=== PATIENT | male | born 2000 | race Two or more races ===

== ENCOUNTER 2022-07-09 11:18 | Inpatient (IN) | payer MEDICAID, OTHER ==
[2022-07-09] VITALS (8 sets, daily range): BP systolic 110–123; BP diastolic 67–80
[~2022-07-09] VITALS: Ht 175.3 cm; Wt 82.7 kg
[2022-07-09] MEDS ORDERED: SODIUM CHLORIDE 0.9% 500 ML IVB ONE (12:15)
[2022-07-09] MEDS ORDERED: SODIUM CHLORIDE 0.9% 1,000 ML IV ONE (12:15)
[2022-07-09 12:16] LABS: Basophils # (auto) 0.1 10 ^3/uL (0-0.2); Basophils % (auto) 0.8 % (0.0-2.0); Eosinophils # (auto) 0 10 ^3/uL (0-0.8); Mean Corpuscular Volume 55.5 fL (80.0-100.0); Monocytes # (auto) 0.6 10 ^3/uL (0-1.3); Neutrophils # (auto) 4.5 10 ^3/uL (1.6-8.6); Nucleated Red Blood Cells % 0.5 %; White Blood Cell 6.6 10^3/uL (4.4-10.8)
[2022-07-09 12:18] LABS: Eosinophils % (auto) 0.3 % (0.0-7.0); Hematocrit 18.3 % (41.0-53.0); Lymphocytes # (auto) 1.4 10 ^3/uL (0.4-5.4); Lymphocytes % (auto) 21.5 % (10.0-50.0); Mean Corpuscular Hemoglobin 13.5 pg (28.0-32.0); Mean Corpuscular Hgb Conc. 24.3 g/dL (32.0-36.0); Monocytes % (auto) 8.7 % (0.0-12.0); Neutrophils % (auto) 68.7 % (37.0-80.0); Red Blood Cells 3.29 10^6/uL (4.5-5.90)
[2022-07-09 12:21] LABS: Red Cell Distribution Width 22.2 % (11.8-14.3)
[2022-07-09 12:23] LABS: Hemoglobin 4.4 g/dL (13.5-17.5)
[2022-07-09 12:50] LABS: INR 1.11 (0.9-1.15)
[2022-07-09 12:52] LABS: Potassium 3.6 mmol/L (3.5-5.1)
[2022-07-09 12:53] LABS: Albumin 2.8 g/dL (3.4-5.0); BUN/Creatinine Ratio 21.1; Bilirubin, Total 0.5 mg/dL (0.2-1.0); Calcium 7.6 mg/dL (8.5-10.1); Total Protein 5.9 g/dL (6.4-8.2)
[2022-07-09] MEDS ORDERED: IOHEXOL 300 MG/ML 100ML BOTTLE IJ ONE (12:55)
[2022-07-09 13:54] LABS: % Iron Saturation 4.3 % (20-55)
[2022-07-09 17:05] LABS: Folate (Folic Acid) 17.15 ng/mL (5.38-24)
[2022-07-09] MEDS ORDERED: NITROGLYCERIN 0.4 MG SL TAB SL PRN (20:45)
[2022-07-09] MEDS ORDERED: MORPHINE SULFATE INJ 2 MG/ml SYRG IV PRN (20:45)
[2022-07-09 20:54] LABS: Hemoglobin 7.4 g/dL (13.5-17.5)
[2022-07-09] MEDS ORDERED: FERROUS SULFATE 325mg EC TAB PO ONE (21:00)
[2022-07-09 21:44] LABS: Cholesterol 82 mg/dL (< 200)
[2022-07-09 21:47] LABS: HDL Cholesterol 25 mg/dL (40-59); LDL Cholesterol 50 mg/dL (< 100); Triglycerides 107 mg/dL (< 150)
[2022-07-10 05:00] VITALS: BP 127/84
[2022-07-10 05:42] VITALS: BP 127/84
[2022-07-10 07:15] LABS: Eosinophils # (auto) 0 10 ^3/uL (0-0.8); Hemoglobin 7.3 g/dL (13.5-17.5); Mean Corpuscular Hemoglobin 19.8 pg (28.0-32.0); Monocytes # (auto) 0.7 10 ^3/uL (0-1.3); White Blood Cell 4.8 10^3/uL (4.4-10.8)
[2022-07-10 07:17] LABS: Basophils # (auto) 0.1 10 ^3/uL (0-0.2); Basophils % (auto) 1.1 % (0.0-2.0); Eosinophils % (auto) 0.3 % (0.0-7.0); Lymphocytes # (auto) 1.5 10 ^3/uL (0.4-5.4); Lymphocytes % (auto) 31.9 % (10.0-50.0); Mean Corpuscular Hgb Conc. 30.3 g/dL (32.0-36.0); Mean Corpuscular Volume 65.6 fL (80.0-100.0); Monocytes % (auto) 14.2 % (0.0-12.0); Neutrophils # (auto) 2.5 10 ^3/uL (1.6-8.6); Neutrophils % (auto) 52.5 % (37.0-80.0); Nucleated Red Blood Cells % 0.7 %; Red Blood Cells 3.66 10^6/uL (4.5-5.90)
[2022-07-10 07:28] LABS: Red Cell Distribution Width 35.9 % (11.8-14.3)
[2022-07-10 07:29] LABS: Albumin 2.2 g/dL (3.4-5.0); Calcium 7.8 mg/dL (8.5-10.1); Potassium 3.8 mmol/L (3.5-5.1)
[2022-07-10 07:31] LABS: BUN/Creatinine Ratio 22.6
[2022-07-10 07:34] LABS: Bilirubin, Total 0.5 mg/dL (0.2-1.0); Total Protein 4.9 g/dL (6.4-8.2)
[2022-07-10 09:00] VITALS: BP 120/81
[2022-07-10] MEDS: FERROUS SULFATE 325mg EC TAB PO SCH ×3 (09:46→18:45)
[2022-07-10] MEDS ORDERED: PANTOPRAZOLE 40 MG/10 ML VIAL INJ IV SCH (10:00)
[2022-07-10 13:00] VITALS: BP 125/81
[2022-07-10 17:00] VITALS: BP 123/73
[2022-07-10 22:00] VITALS: BP 119/78
[2022-07-11 05:00] VITALS: BP 118/75
[2022-07-11 07:48] LABS: Basophils # (auto) 0.1 10 ^3/uL (0-0.2); Eosinophils # (auto) 0.1 10 ^3/uL (0-0.8); Monocytes # (auto) 0.7 10 ^3/uL (0-1.3); Nucleated Red Blood Cells % 0.4 %
[2022-07-11 07:50] LABS: Basophils % (auto) 1.4 % (0.0-2.0); Eosinophils % (auto) 1.3 % (0.0-7.0); Hematocrit 24.9 % (41.0-53.0); Hemoglobin 7.3 g/dL (13.5-17.5); Lymphocytes # (auto) 1.8 10 ^3/uL (0.4-5.4); Lymphocytes % (auto) 35.7 % (10.0-50.0); Mean Corpuscular Hemoglobin 19.3 pg (28.0-32.0); Mean Corpuscular Hgb Conc. 29.3 g/dL (32.0-36.0); Monocytes % (auto) 13.4 % (0.0-12.0); Neutrophils # (auto) 2.5 10 ^3/uL (1.6-8.6); Neutrophils % (auto) 48.2 % (37.0-80.0); Red Blood Cells 3.78 10^6/uL (4.5-5.90); White Blood Cell 5.2 10^3/uL (4.4-10.8)
[2022-07-11 08:00] VITALS: BP 117/74
[2022-07-11 08:24] LABS: Red Cell Distribution Width 36.3 % (11.8-14.3)
[2022-07-11] MEDS: FERROUS SULFATE 325mg EC TAB PO SCH (08:31)
[2022-07-11 12:00] VITALS: BP 116/77
[2022-07-11 16:00] VITALS: BP 123/53
[2022-07-12 05:00] VITALS: BP 110/70
[2022-07-12 07:20] LABS: Basophils # (auto) 0 10 ^3/uL (0-0.2); Basophils % (auto) 0.8 % (0.0-2.0); Eosinophils # (auto) 0.1 10 ^3/uL (0-0.8); Hematocrit 25.2 % (41.0-53.0); Lymphocytes # (auto) 1.8 10 ^3/uL (0.4-5.4); Monocytes # (auto) 0.5 10 ^3/uL (0-1.3); Neutrophils # (auto) 2.3 10 ^3/uL (1.6-8.6); Neutrophils % (auto) 48.3 % (37.0-80.0)
[2022-07-12 07:24] LABS: Eosinophils % (auto) 1.5 % (0.0-7.0); Hemoglobin 7.3 g/dL (13.5-17.5); Lymphocytes % (auto) 38.1 % (10.0-50.0); Mean Corpuscular Hemoglobin 19.2 pg (28.0-32.0); Mean Corpuscular Hgb Conc. 28.9 g/dL (32.0-36.0); Mean Corpuscular Volume 66.4 fL (80.0-100.0); Monocytes % (auto) 11.3 % (0.0-12.0); Nucleated Red Blood Cells % 0.4 %; White Blood Cell 4.8 10^3/uL (4.4-10.8)
[2022-07-12 07:44] LABS: Red Cell Distribution Width 36.9 % (11.8-14.3)
[2022-07-12 08:00] VITALS: BP 120/75
[2022-07-12 12:00] VITALS: BP 112/62
[2022-07-12 16:00] VITALS: BP 118/79
[2022-07-12 21:59] VITALS: BP 118/78
[2022-07-13 04:42] VITALS: BP 120/72
[2022-07-13 07:12] LABS: Eosinophils # (auto) 0.1 10 ^3/uL (0-0.8); Eosinophils % (auto) 1.3 % (0.0-7.0); Monocytes # (auto) 0.5 10 ^3/uL (0-1.3); Neutrophils # (auto) 2.4 10 ^3/uL (1.6-8.6)
[2022-07-13 07:15] LABS: Basophils # (auto) 0.1 10 ^3/uL (0-0.2); Basophils % (auto) 1.3 % (0.0-2.0); Hematocrit 24.6 % (41.0-53.0); Lymphocytes # (auto) 1.5 10 ^3/uL (0.4-5.4); Lymphocytes % (auto) 33.7 % (10.0-50.0); Mean Corpuscular Hemoglobin 19.3 pg (28.0-32.0); Mean Corpuscular Hgb Conc. 28.6 g/dL (32.0-36.0); Mean Corpuscular Volume 67.4 fL (80.0-100.0); Neutrophils % (auto) 53.7 % (37.0-80.0); Nucleated Red Blood Cells % 0.2 %; Red Blood Cells 3.65 10^6/uL (4.5-5.90); White Blood Cell 4.5 10^3/uL (4.4-10.8)
[2022-07-13 07:38] LABS: Red Cell Distribution Width 36.6 % (11.8-14.3)
[2022-07-13 09:00] VITALS: BP 116/77
[2022-07-13] MEDS ORDERED: GOLYTELY 4L KIT PO ONE (09:00)
[2022-07-13] MEDS: D5W/SOD CHLO 0.9% 1,000 ML IV SCH ×2 (10:00→23:20)
[2022-07-13 13:00] VITALS: BP 127/74
[2022-07-13 17:00] VITALS: BP 122/78
[2022-07-14 05:00] VITALS: BP 109/68
[2022-07-14 06:28] LABS: Eosinophils # (auto) 0 10 ^3/uL (0-0.8); Eosinophils % (auto) 0.4 % (0.0-7.0); Lymphocytes # (auto) 1.4 10 ^3/uL (0.4-5.4); Monocytes # (auto) 0.5 10 ^3/uL (0-1.3)
[2022-07-14 06:34] LABS: Basophils # (auto) 0 10 ^3/uL (0-0.2); Basophils % (auto) 1.1 % (0.0-2.0); Hematocrit 22.6 % (41.0-53.0); Lymphocytes % (auto) 33.6 % (10.0-50.0); Mean Corpuscular Hemoglobin 19.2 pg (28.0-32.0); Mean Corpuscular Hgb Conc. 29.1 g/dL (32.0-36.0); Mean Corpuscular Volume 65.9 fL (80.0-100.0); Monocytes % (auto) 12.1 % (0.0-12.0); Neutrophils # (auto) 2.2 10 ^3/uL (1.6-8.6); Neutrophils % (auto) 52.8 % (37.0-80.0); Nucleated Red Blood Cells % 0.2 %; Red Blood Cells 3.42 10^6/uL (4.5-5.90); White Blood Cell 4.1 10^3/uL (4.4-10.8)
[2022-07-14 06:40] LABS: INR 1.19 (0.9-1.15); Partial Thromboplastin Time 26.4 sec (24.6-33.4)
[2022-07-14 06:42] LABS: Albumin 2.5 g/dL (3.4-5.0); Calcium 7.7 mg/dL (8.5-10.1); Potassium 3.9 mmol/L (3.5-5.1)
[2022-07-14 06:46] LABS: BUN/Creatinine Ratio 19.7; Bilirubin, Total 0.4 mg/dL (0.2-1.0); Total Protein 4.9 g/dL (6.4-8.2)
[2022-07-14] MEDS ORDERED: LIDOCAINE VISCOUS 2% 15ML UD ONE (06:49)
[2022-07-14 06:58] LABS: Hemoglobin 6.6 g/dL (13.5-17.5)
[2022-07-14] MEDS ORDERED: PROPOFOL 10 MG/ML 20 ML IV ONE (07:22)
[2022-07-14] MEDS ORDERED: LIDOCAINE HCL 100 MG/5ML (2%) SYRG INJ IV ONE (07:22)
[2022-07-14 09:00] VITALS: BP 112/75
[2022-07-14] MEDS: D5W/SOD CHLO 0.9% 1,000 ML IV SCH (11:19)
[2022-07-14] MEDS ORDERED: GOLYTELY 4L KIT PO ONE (12:15)
[2022-07-14 12:52] VITALS: BP 114/74
[2022-07-14 17:03] VITALS: BP 125/81
[2022-07-14 22:00] VITALS: BP 128/83
[2022-07-15] MEDS: D5W/SOD CHLO 0.9% 1,000 ML IV SCH ×2 (02:04→13:31)
[2022-07-15 05:03] VITALS: BP 99/66
[2022-07-15 07:42] LABS: Basophils # (auto) 0 10 ^3/uL (0-0.2); Basophils % (auto) 0.9 % (0.0-2.0); Eosinophils # (auto) 0 10 ^3/uL (0-0.8); Eosinophils % (auto) 1.1 % (0.0-7.0); Hematocrit 30.7 % (41.0-53.0); Hemoglobin 8.8 g/dL (13.5-17.5); Lymphocytes # (auto) 1.5 10 ^3/uL (0.4-5.4); Lymphocytes % (auto) 34.7 % (10.0-50.0); Mean Corpuscular Hemoglobin 20.4 pg (28.0-32.0); Mean Corpuscular Hgb Conc. 28.6 g/dL (32.0-36.0); Mean Corpuscular Volume 71.2 fL (80.0-100.0); Monocytes # (auto) 0.6 10 ^3/uL (0-1.3); Neutrophils # (auto) 2.2 10 ^3/uL (1.6-8.6); Neutrophils % (auto) 49.3 % (37.0-80.0); Nucleated Red Blood Cells % 0.3 %; Red Blood Cells 4.32 10^6/uL (4.5-5.90); White Blood Cell 4.4 10^3/uL (4.4-10.8)
[2022-07-15 07:49] LABS: Red Cell Distribution Width 35.4 % (11.8-14.3)
[2022-07-15 08:41] VITALS: BP 114/70
[2022-07-15] MEDS ORDERED: GOLYTELY 4L KIT PO ONE (11:00)
[2022-07-15 12:45] VITALS: BP 113/73
[2022-07-15 17:33] VITALS: BP 108/76
[2022-07-15 23:40] VITALS: BP 107/65
[2022-07-16] MEDS: D5W/SOD CHLO 0.9% 1,000 ML IV SCH ×2 (04:25→18:00)
[2022-07-16 05:19] VITALS: BP 118/72
[2022-07-16 05:24] VITALS: BP 102/67
[2022-07-16 08:15] VITALS: BP 104/64
[2022-07-16 12:20] VITALS: BP 117/75
[2022-07-16 16:15] VITALS: BP 111/70
[2022-07-16 22:00] VITALS: BP 114/70
[2022-07-17 05:05] VITALS: BP 108/62
[2022-07-17 08:25] VITALS: BP 108/65
[2022-07-17] MEDS: D5W/SOD CHLO 0.9% 1,000 ML IV SCH (09:41)
[2022-07-17] MEDS ORDERED: MEPERIDINE HCL (25 MG/ML) 1ML VIAL ONE (10:19)
[2022-07-17] MEDS ORDERED: fentaNYL CITRATE 100 MCG/2 ML VL ONE (10:20)
[2022-07-17] MEDS ORDERED: MIDAZOLAM HCL 2MG/2ML 2ml VIAL (1mg/ml) ONE (10:20)
[2022-07-17] MEDS ORDERED: PROPOFOL 10 MG/ML 20 ML IV ONE (11:52)
[2022-07-17] MEDS ORDERED: DexAMETHasone SOD PHOS 10MG/1ML VIAL INJ ONE (11:52)
[2022-07-17] MEDS ORDERED: ePHEDrine SULFATE 50 MG/ML AMP IV PRN (12:15)
[2022-07-17] MEDS ORDERED: MIDAZOLAM HCL 2MG/2ML 2ml VIAL (1mg/ml) IV PRN (12:15)
[2022-07-17] MEDS ORDERED: MORPHINE SULFATE 4 MG/ML SYR/VIAL IV PRN (12:15)
[2022-07-17] MEDS ORDERED: HYDROmorphone HCL 2 MG/ML VL/or syr IV PRN (12:15)
[2022-07-17] MEDS ORDERED: ONDANSETRON HCL 4 MG/2 ML VIAL IV PRN (12:15)
[2022-07-17] MEDS ORDERED: LABETALOL HCL 5 MG/ML 4ML SYRINGE IV PRN (12:15)
[2022-07-17] MEDS ORDERED: SODIUM FERR GLUC 62.5MG/5ML 125 MG in SODIUM CHL 0.9% 100 ML IV SCH (13:00)
[2022-07-17 14:42] VITALS: BP 123/86
[2022-07-17] MEDS ORDERED: SENN-83 PO (15:05)
[2022-07-17] MEDS ORDERED: FER325T PO (15:05)
[2022-07-17] MEDS ORDERED: POLY33504 PO (15:05)
[2022-07-17 17:10] VITALS: BP 102/63
[2022-07-17 17:22] LABS: Basophils # (auto) 0 10 ^3/uL (0-0.2); Eosinophils # (auto) 0 10 ^3/uL (0-0.8); Hemoglobin 9.3 g/dL (13.5-17.5); Lymphocytes # (auto) 0.2 10 ^3/uL (0.4-5.4); Monocytes # (auto) 0.1 10 ^3/uL (0-1.3); Neutrophils # (auto) 5.2 10 ^3/uL (1.6-8.6)
[2022-07-17 17:24] LABS: Basophils % (auto) 0.2 % (0.0-2.0); Eosinophils % (auto) 0.1 % (0.0-7.0); Hematocrit 31.9 % (41.0-53.0); Lymphocytes % (auto) 3.2 % (10.0-50.0); Mean Corpuscular Hemoglobin 20.3 pg (28.0-32.0); Monocytes % (auto) 2.4 % (0.0-12.0); Neutrophils % (auto) 94.1 % (37.0-80.0); Nucleated Red Blood Cells % 0.1 %; Red Blood Cells 4.56 10^6/uL (4.5-5.90); White Blood Cell 5.5 10^3/uL (4.4-10.8)
[2022-07-17 17:26] LABS: Alanine Aminotransferase 14 U/L (16-61); Albumin 2.4 g/dL (3.4-5.0); Anion Gap 7 (5-15); Aspartate Aminotransferase 11 U/L (15-37); BUN/Creatinine Ratio 3.2; Blood Urea Nitrogen 3 mg/dL (7-18); Calcium 7.8 mg/dL (8.5-10.1); Carbon Dioxide 26 mmol/L (21-32); Chloride 109 mmol/L (98-107); GFR African American 129 mL/min; GFR Non-African American 106 mL/min; Glucose 135 mg/dL (74-106); Potassium 3.8 mmol/L (3.5-5.1); Sodium 142 mmol/L (136-145)
[2022-07-17 17:29] LABS: Alkaline Phosphatase 57 U/L (45-117); Bilirubin, Total 0.3 mg/dL (0.2-1.0); Total Protein 5.6 g/dL (6.4-8.2)
[2022-07-17 17:49] LABS: Red Cell Distribution Width 34.6 % (11.8-14.3)
== END 2022-07-17 18:50 | disposition home or self-care (01) | DRG 663 ==
LOC: ER 11:18 → OVERFLOW 20:53 → WEST WING 07-10 03:27
PROVIDERS: ADMIT Registered Nurse; ATTEND Student in an Organized Health Care Education/Training Program
PROC: 30233N1 Transfusion of Nonautologous Red Blood Cells into Peripheral Vein, Percutaneous Approach (ICD-10-PCS; principal; 2022-07-09)
PROC: 0DJ08ZZ Inspection of Upper Intestinal Tract, Via Natural or Artificial Opening Endoscopic (ICD-10-PCS; 2022-07-14)
PROC: 0DBN8ZX Excision of Sigmoid Colon, Via Natural or Artificial Opening Endoscopic, Diagnostic (ICD-10-PCS; 2022-07-17)
DX: D50.9 Iron deficiency anemia, unspecified (principal); E43 Unspecified severe protein-calorie malnutrition; K63.3 Ulcer of intestine; Z20.822 Contact with and (suspected) exposure to COVID-19; K52.9 Noninfective gastroenteritis and colitis, unspecified; K59.00 Constipation, unspecified; Z88.0 Allergy status to penicillin; Z83.3 Family history of diabetes mellitus; Z68.1 Body mass index [BMI] 19.9 or less, adult
CPT/HCPCS: 36415; 71046; 74177; 80053; 80061; 82270; 82607; 82728; 82746; 83036; 83540; 83550; 83735; 84443; 85014; 85018; 85025; 85045; 85610; 85730; 86304; 86850; 86900; 86901; 86920; 87426; 96374; C9113; G0378; J1100; J2250; J2704; J7042